=== PATIENT | female | born 1950 | race Caucasian/White ===

== ENCOUNTER → 2019-12-05 09:15 | Outpatient (CLI) | payer MEDICARE, OTHER, SELFPAY ==
--- NOTE | ~2019-12-05 | US_ITS ---
US thyroid INDICATION: Postprocedural hypothyroidism TECHNIQUE: Real-time sonographic images of the thyroid gland were obtained. COMPARISON: CT neck dated 01/09/2014 FINDINGS: The right thyroid lobe measures 3.2 x 0.7 x 0.8 cm. The left thyroid lobe measures 3.3 x 2 .8 x 0.7 cm. There is normal echotexture and echogenicity throughout the thyroid gland. No discrete n odules identified. Normal vascular flow is present. IMPRESSION: 1. Normal thyroid without discrete nodule or abnormal vascularity. Reviewed, dictated and finalized at location B.
== END ==
PROVIDERS: PCP Internal Medicine; Visit Provider Internal Medicine Endocrinology, Diabetes & Metabolism
DX: E89.0 Postprocedural hypothyroidism (principal)
CPT/HCPCS: 76536